=== PATIENT | female | born 1955 | race Caucasian/White ===

== ENCOUNTER 2016-12-31 18:22 | Emergency (ER) | payer OTHER ==
[~2016-12-31] VITALS: Ht 172.7 cm; Wt 81.4 kg
[2016-12-31] MEDS ORDERED: HYDROcodone/APAP 5/325 TABLET ONE (18:58)
[2016-12-31] MEDS ORDERED: HYDROcodone/APAP 5/325 TABLET PO ONE (19:00)
[2016-12-31 19:27] VITALS: BP 169/104
== END 2016-12-31 20:33 | disposition home or self-care (01) ==
LOC: ED 20:30
DX: S83.92XA Sprain of unspecified site of left knee, initial encounter (principal); I10 Essential (primary) hypertension; F17.210 Nicotine dependence, cigarettes, uncomplicated; X58.XXXA Exposure to other specified factors, initial encounter; Y93.01 Activity, walking, marching and hiking; Y92.89 Other specified places as the place of occurrence of the external cause; Y99.9 Unspecified external cause status
CPT/HCPCS: 99284

== ENCOUNTER 2017-07-30 09:56 | Day surgery (SDC) | payer OTHER ==
[~2017-07-30] VITALS: Ht 172.7 cm; Wt 87.7 kg
[~2017-07-30 09:56] MED LIST: BUPIVACAINE/PF-EPI 0.5% 1:200K ONE; CLINDAMYCIN 150 MG/ML, 6ML ONE; EPINEPHRINE 1 MG/ML, 1ML ONE; LIDOCAINE/PF 1%, 30ML ONE
[2017-07-30 10:24] VITALS: BP 179/96
[2017-07-30] MEDS ORDERED: NEBI20TA2 PO (10:24)
[2017-07-30] MEDS ORDERED: OXYcodone 5 MG/5 ML ORAL.SOL UDC PO PRN (10:30)
[2017-07-30] MEDS ORDERED: EPHEDRINE 50 MG/ML, 1ML IVPush PRN (10:30)
[2017-07-30] MEDS ORDERED: MEPERIDINE/PF 25MG/0.5ML IVPush PRN (10:30)
[2017-07-30] MEDS ORDERED: LACTATED RINGERS 1,000 ML IV SCH (10:30)
[2017-07-30] MEDS ORDERED: ALBUTEROL SULFATE 2.5 MG/3 ML NPPB PRN (10:30)
[2017-07-30] MEDS ORDERED: PROMETHAZINE 25 MG/ML, 1ML IV PRN (10:30)
[2017-07-30] MEDS ORDERED: ACETAMINOPHEN 325 MG TABLET PO PRN (10:30)
[2017-07-30] MEDS ORDERED: ONDANSETRON ODT 8 MG PO PRN (10:30)
[2017-07-30] MEDS ORDERED: HALOPERIDOL 5 MG/ML IV PRN (10:30)
[2017-07-30] MEDS ORDERED: hydrALAzine 20 MG/ML, 1ML IV PRN (10:30)
[2017-07-30] MEDS ORDERED: FENTANYL PF 100 MCG/2ML IV PRN (10:30)
[2017-07-30] MEDS ORDERED: LABETALOL 5MG/ML, 20ML IV PRN (10:30)
[2017-07-30] MEDS ORDERED: METOPROLOL 1 MG/ML, 5ML IV PRN (10:30)
[2017-07-30] MEDS ORDERED: DEXAMETHASONE 4 MG/ML, 1ML ONE (10:37)
[2017-07-30] MEDS ORDERED: PROPOFOL 10 MG/ML, 20ML ONE (10:37)
[2017-07-30] MEDS ORDERED: ONDANSETRON ODT 8 MG ONE (10:38)
[2017-07-30] MEDS ORDERED: FENTANYL PF 100 MCG/2ML ONE (10:40)
[2017-07-30] MEDS ORDERED: OXYcodone 5 MG/5 ML ORAL.SOL UDC ONE (11:32)
[2017-07-30] MEDS ORDERED: ACETAMINOPHEN 650 MG/20.3 ML UDC ONE (11:32)
== END 2017-07-30 13:45 ==
LOC: OUT 09:56
PROVIDERS: ATTEND Orthopaedic Surgery
DX: S83.242A Other tear of medial meniscus, current injury, left knee, initial encounter (principal); M25.562 Pain in left knee; M94.262 Chondromalacia, left knee; I10 Essential (primary) hypertension; Z88.0 Allergy status to penicillin; X58.XXXA Exposure to other specified factors, initial encounter; Y93.89 Activity, other specified; Y92.89 Other specified places as the place of occurrence of the external cause; Y99.8 Other external cause status
CPT/HCPCS: 29881; J0171; J1100; J2704; J3010; J3490; J7120; Q0162